=== PATIENT | female | born 1960 | race Caucasian/White ===

== ENCOUNTER 2022-11-21 16:06 | Observation (INO) | payer OTHER ==
[~2022-11-21] VITALS: Ht 170.2 cm; Wt 52.3 kg
[~2022-11-21 16:06] MED LIST: AMOXICILLIN500 MG PO; PREDNISONE20 MG PO; PROVENTIL HFA6.7 GM INH
[2022-11-21] MEDS ORDERED: ALBUTEROL2.5 MG/3 M INH (16:14)
[2022-11-21] MEDS ORDERED: LISINOPRIL5 MG PO (16:14)
[2022-11-21] MEDS ORDERED: FUROSEMIDE20 MG PO (16:14)
[2022-11-21] MEDS ORDERED: SPIRIVA RESPIMAT4 G1 INH (16:14)
[2022-11-21] MEDS ORDERED: FLUTICASONE PRO16 GM NAS (16:14)
[2022-11-21] MEDS ORDERED: CETIRIZINE HCL10 MG PO (16:14)
[2022-11-21] MEDS ORDERED: CARVEDILOL3.125 MG PO (16:14)
[2022-11-21] MEDS ORDERED: VENTOLIN HFA18 GM INH (19:19)
[2022-11-21 20:00] VITALS: BP 110/75
--- NOTE | 2022-11-21 20:33 | NUR ---
USES 4 LPM O2 AT HOME. USES SPIRIVA, ADVAIR AND ALBUTEROL AT HOME. APPROPIATE HOSPITIAL SUBSTITUTIONS ORDERED.
--- NOTE | 2022-11-21 21:31 | NUR ---
PT ASSISTED UP TO BSC, OXYGEN PLACED ON EXTENDED TUBINTG, CONTINUES AT 3L/NC, PT ASSISTED UP TO BSC, VOIDED 100ML MICHEL URINE, GAIT SLOW 1PA STANDBY, PT BACK TO BED. PT TALKING WITH PRIMARY RN.
[2022-11-22 02:01] VITALS: BP 113/64
--- NOTE | 2022-11-22 02:04 | NUR ---
Vitals done. Brought patient a warm blanket. Nothing else needed at this time. Call light is within reach.
[2022-11-22 05:35] VITALS: BP 100/57
--- NOTE | 2022-11-22 06:42 | NUR ---
PT ADMITTED FROM THE ER WITH THE BEGINNING OF THE SHIFT FOR COPD EXACERBATION. PT WEARING O2 AT 4L NC, SATING WELL. DUO NEB TX DONE. VSS. PT SBA TO BSC. SAFETY PRECAUTIONS MAINTAINED. CALL LIGHT WITHIN REACH. WILL CONTINUE TO MONITOR.
--- NOTE | 2022-11-22 07:34 | NUR ---
RECEIVED REPORT FROM [facility] NURSE. PT APPEARS TO BE SLEEPING COMFORTABLY. RESPIRATIONS EVEN AND REGULAR. NC IN PLACE.
--- NOTE | 2022-11-22 08:20 | NUR ---
PT ASSESSMENT AND MEDICATION ADMINISTRATION COMPLETED. PT IS A/O, RESPIRATIONS EVEN AND REGULAR. ASSISSTED PT TO RESTROOM. AMBULATES WELL. IV FLUIDS RUNNING. REMAINS ON NC.
[2022-11-22] MEDS ORDERED: FLUTICASONE-SA1 EAC4 INH (09:29)
[2022-11-22] MEDS ORDERED: HYDROCORTISONE454 GM TOP (09:31)
[2022-11-22 09:49] VITALS: BP 104/51
--- NOTE | 2022-11-22 10:15 | NUR ---
ROUNDED ON PT. PT DENIES NEEDS AT THIS TIME. NO N/V FOR THIS SHIFT. RECEIVED VO FROM TO ADVANCE DIET.
--- NOTE | 2022-11-22 11:04 | NUR ---
assisted pt up to bedside commode. pt is a/o, respirations even and reuglar.
[2022-11-22 11:30] VITALS: BP 101/55
--- NOTE | 2022-11-22 12:09 | NUR ---
ROUNDED ON PT. PT DENIES NEEDS ATT. CALL LIGHT WITHIN REACH.
--- NOTE | 2022-11-26 19:10 | EKG ---
[facility] [address] [place] [address] Signed Sinus rhythm with occasional premature ventricular complexes Right superior axis deviation Anteroseptal infarct (cited on or before 19-MAY-2018) Abnormal ECG When compared with ECG of 21-NOV-2022 16:06, (Unconfirmed) premature ventricular complexes are now present Confirmed by GLORIA HALL MD ([id number]) on 11/26/2022 7:10:11 PM Electronically Signed By: GLORIA HALL 11/26/22 1910 PATIENT NAME: ALEX SEGAL Electrocardiogram DATE OF : 62 PHYSICIAN: GLORIA HALL REPORT #: [id number] REPORT IS CONFIDENTIAL AND NOT TO BE RELEASED WITHOUT AUTHORIZATION
== END 2022-11-22 12:18 | disposition home or self-care (01) ==
LOC: ED 16:06 → MS 16:07
PROVIDERS: ADMIT Internal Medicine; ATTEND Internal Medicine
DX: J44.1 Chronic obstructive pulmonary disease with (acute) exacerbation (principal); K04.7 Periapical abscess without sinus; I50.9 Heart failure, unspecified; I11.0 Hypertensive heart disease with heart failure
CPT/HCPCS: 36415; 71045; 80053; 83735; 83880; 84484; 85025; 93005; 93010; 94640; 94760; 96372; 96374; 96376; 99285 25; 99406; G0378; J1650; J2920; J2930

== ENCOUNTER 2023-08-26 16:46 | Inpatient (IN) | payer OTHER ==
[~2023-08-26] VITALS: Ht 170.2 cm; Wt 49.9 kg
[~2023-08-26 16:46] MED LIST changes: +ALBUTEROL2.5 MG/3 M INH; +CARVEDILOL3.125 MG PO; +CETIRIZINE HCL10 MG PO; +FLUTICASONE PRO16 GM NAS; +FLUTICASONE-SA1 EAC4 INH; +FUROSEMIDE20 MG PO; +HYDROCORTISONE454 GM TOP; +LISINOPRIL5 MG PO; +SPIRIVA RESPIMAT4 G1 INH; +VENTOLIN HFA18 GM INH
[2023-08-26 16:59] LABS: PH, VENOUS 7.301 (7.31-7.41)
[2023-08-26] MEDS ORDERED: ALBUTEROL/IPRATROPIUM 3 ML NEB INH PRN (17:00)
[2023-08-26] MEDS ORDERED: methylPREDNISolone SOD SUCC 125 MG/2 ML VIAL IV ONE (17:00)
[2023-08-26 17:05] LABS: BASOPHILS 0.8 % (0-2); EOSINOPHILS 0.9 % (0-6); HEMATOCRIT 41.5 % (35.0-50.0); HEMOGLOBIN 13.4 g/dL (12.0-18.0); LYMPHOCYTES 13.7 % (24-44); MCH 31.6 (27-36); MCHC 32.3 g/dl (30-36); MCV 97.9 fl (81-99); MONOCYTES 8.6 % (0-12); PLATELET COUNT 203 K/uL (140-440); RBC 4.24 M/ul (4.3-5.7); RDW 13.8 (10.5-15.0)
[2023-08-26 17:24] LABS: ALBUMIN 4.1 g/dL (3.4-5.0); ALBUMIN/GLOBULIN RATIO 1.28 (1.1-2.4); BILIRUBIN, TOTAL 0.6 ng/dL (0.2-1.0); BUN/CREATININE RATIO 26.08 (6.0-28.6); CALCIUM 9.4 mg/dL (8.5-10.1); CREATININE, SERUM 0.46 mg/dL (0.55-1.02); POTASSIUM 4.5 mmol/L (3.5-5.1); PROTEIN, TOTAL 7.3 g/dL (6.4-8.2)
[2023-08-26 17:25] LABS: ANION GAP 2.5 (7-21)
[2023-08-26 18:28] LABS: PH, VENOUS 7.354 (7.31-7.41)
[2023-08-26] MEDS ORDERED: CEFTRIAXONE/SODIUM CHLORIDE 2 GM/100 ML PIGGYBACK IV ONE (19:00)
[2023-08-26] MEDS ORDERED: SODIUM CHLORIDE 0.9% 500 ML IV PRN (19:00)
[2023-08-26] MEDS ORDERED: AZITHROMYCIN/DEXTROSE 500 MG/250 ML BAG IV ONE (19:00)
[2023-08-26] MEDS ORDERED: ALBUTEROL/IPRATROPIUM 3 ML NEB INH SCH ×2 (20:00→21:00)
[2023-08-26 20:02] VITALS: BP 149/79
[2023-08-26] MEDS ORDERED: LORazepam 0.5 MG TAB PO ONE (20:15)
--- NOTE | 2023-08-26 20:50 | NUR ---
ADMISSION AND ASSESSMENT COMPLETED, SEE DOCUMENTATION. ZITHROMAX INFUSION STARTED. FIELD START D/C'D WNL AND NEW IV STARTED IN RIGHT FOREARM. PT WAS ON 4L O2 BUT TITRATED TO 8L AFTER MOVING TO THE BED FOR DESAT TO 86-88%. CALL LIGHT AND BELONGINGS WITHIN REACH. POC DISCUSSED AND QUESTIONS ANSWERED.
--- NOTE | 2023-08-26 21:05 | NUR ---
ATIVAN GIVEN, PT PLACED ON BIPAP PER RT. CALL LIGHT AND BELONGINGS WITHIN REACH.
--- NOTE | 2023-08-26 21:10 | NUR ---
Q4 AROUND THE CLOCK FOR FIRST 24 HOURS.
--- NOTE | 2023-08-26 21:52 | NUR ---
PT SLEEPING WITH BIPAP IN PLACE. RR 26, EVEN AND UNLABORED. HR 73, SPO2 93% PER PULSE OX.
--- NOTE | 2023-08-26 22:42 | NUR ---
PT CONTINUES TO SLEEP WITH BIPAP IN PLACE, VSS.
[2023-08-27] VITALS (9 sets, daily range): BP systolic 114–139; BP diastolic 61–75
--- NOTE | 2023-08-27 00:04 | NUR ---
PT CONTINUES TO SLEEP WITH BIPAP IN PLACE, NO APPARENT DISTRESS. RR:21, HR:73, SPO2: 92%.
--- NOTE | 2023-08-27 00:28 | NUR ---
AVAPS VT GOAL 400, MIN P 8, MAXP P 20, BUR 16
--- NOTE | 2023-08-27 01:54 | NUR ---
PT SLEEPING, WOKE EASILY FOR ASSESSMENT. BIPAP REMAINS IN PLACE, R.T. IN TO ADJUST MASK. VSS. PT DENIES NEED TO USE RESTROOM AT THIS TIME. CALL LIGHT AND BELONGINGS WITHIN REACH.
--- NOTE | 2023-08-27 03:09 | NUR ---
PT RESTING WITH EYES CLOSED, BIPAP IN PLACE. MASK ADJUSTED/SLIGHTLY TIGHTENED. SPO2 95%.
--- NOTE | 2023-08-27 04:28 | NUR ---
PT ASLEEP WITH BIPAP IN PLACE. HR 72, SPO2 90% PER PULSE OX. RESPIRATIONS EVEN AND UNLABORED.
[2023-08-27 05:27] LABS: PH, VENOUS 7.426 (7.31-7.41)
[2023-08-27 05:29] LABS: RDW 13.6 (10.5-15.0)
[2023-08-27 05:32] LABS: BASOPHILS 0.5 % (0-2); HEMATOCRIT 36.5 % (35.0-50.0); LYMPHOCYTES 11.1 % (24-44); MCH 31.5 (27-36); MCHC 32.8 g/dl (30-36); MCV 96.2 fl (81-99); MONOCYTES 7.3 % (0-12); NEUTROPHILS 81.1 % (39-80); PLATELET COUNT 172 K/uL (140-440)
[2023-08-27 05:40] LABS: ANION GAP 4.6 (7-21); BUN/CREATININE RATIO 21.56 (6.0-28.6); CREATININE, SERUM 0.51 mg/dL (0.55-1.02); MAGNESIUM 1.6 mg/dL (1.8-2.4); POTASSIUM 4.6 mmol/L (3.5-5.1)
--- NOTE | 2023-08-27 05:44 | NUR ---
AFTER LABS WERE COLLECTED, BIPAP REMOVED AND PT PLACED ON 4L NC. PT THEN UP TO BSC WITH SBA. PT DYSPNEIC AND DESATS TO MID 80s%, O2 INCREASED TO 8L AND THEN 10L TO MAINTAIN SPO2>90%. R.T. CALLED TO GIVE PRN BREATHING TREATMENT. CALL LIGHT AND BELONGINGS WITHIN REACH.
--- NOTE | 2023-08-27 06:15 | NUR ---
PATIENT REQUESTS COFFEE. REQUEST MET. NO FURTHER NEEDS AT THIS TIME. CALL LIGHT IN REACH.
--- NOTE | 2023-08-27 06:36 | NUR ---
PT NOW ON HIGH FLOW NC PER R.T. @ 40L AND 60%
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
[2023-08-27] MEDS ORDERED: NICOTINE 21 MG/24 HR 1 EA TDSY TD SCH (09:00)
[2023-08-27] MEDS ORDERED: ENOXAPARIN SODIUM 40 MG/0.4 ML SYR SUB-Q SCH (09:00)
[2023-08-27] MEDS ORDERED: predniSONE 20 MG TAB PO SCH (09:00)
[2023-08-27] MEDS ORDERED: AZITHROMYCIN 250 MG TAB PO SCH (09:00)
[2023-08-27] MEDS ORDERED: MAGNESIUM SULFATE 4 GM/100 ML BAG IV ONE (09:15)
[2023-08-27] MEDS ORDERED: CARVEDILOL6.25 MG PO (09:48)
[2023-08-27] MEDS ORDERED: SPIRIVA RESPIMAT4 GM INH (09:49)
[2023-08-27] MEDS ORDERED: LISINOPRIL20 MG PO (09:49)
[2023-08-27] MEDS ORDERED: IPRAT-ALBUT 0.5-3 ML INH (09:50)
--- NOTE | 2023-08-27 10:15 | NUR ---
PATIENT IN BED AT THIS TIME. VITALS AND I&O'S CHARTED, WARM BLANKET WAS ALSO GIVEN. CALL LIGHT WITHIN REACH, NO FURTHER NEEDS AT THIS TIME.
--- NOTE | 2023-08-27 10:54 | NUR ---
ATTEMPTED VISIT DURING SPIRITUAL CARE ROUNDS. PT RECEIVING NURSING CARE. DID NOT INTERRUPT. PROVIDED PRAYER.
--- NOTE | 2023-08-27 10:56 | NUR ---
MED REC COMPLETE
--- NOTE | 2023-08-27 11:09 | NUR ---
VISITED DURING SPIRITUAL CARE ROUNDS. PT AND CRANIOLOGIST EXPRESSED SITUATIONALLY APPROPRIATE EMOTIONS; CONFIDENCE IN CARE. PT REQUESTED PRAYER WHICH I PROVIDED. PROVIDED SUPPORTIVE PRESENCE; HOSPITALITY. PT EXPRESSED GRATITUDE.
--- NOTE | 2023-08-27 11:51 | NUR ---
PATIENT UP TO THE BEDSIDE COMODE TO URINATE. NO COMPLICATIONS, SBA. PATIENT BED CLEANED UP AND PATIENT SITTING IN BED WITH LUNCH. CALL LIGHT WITHIN REACH. PATIENT HAS TV ON. CASE MANAGEMENT WAS JUST IN TALKING TO PATIENT. PATIENT DENIES ANY OTHER CARES AT THIS TIME.
[2023-08-27] MEDS ORDERED: PHARMACY RENAL DOSE ADJUSTMENT 1 DOSE MISC PO SCH (12:00)
--- NOTE | 2023-08-27 12:33 | NUR ---
UR NOTE 08/27/23 INPATIENT ORDER 08/26/23 1854 [facility] CHRONIC OBSTRUCTIVE PULMONARY DISEASE PRIMARY INSURANCE: [facility]
--- NOTE | 2023-08-27 12:43 | EKG ---
[facility] [address] [place] [address] Signed Normal sinus rhythm Indeterminate axis Nonspecific intraventricular block Minimal voltage criteria for LVH, may be normal variant ( Ruth product ) Abnormal ECG When compared with ECG of 21-NOV-2022 16:06, premature ventricular complexes are no longer present Questionable change in QRS duration Criteria for Anteroseptal infarct are no longer present Confirmed by Guerrero Scott MD ([id number]) on 08/27/2023 12:43:12 PM Electronically Signed By: GUERRERO SCOTT 08/27/23 1243 PATIENT NAME: ALEX SEGAL Electrocardiogram DATE OF : 62 PHYSICIAN: GUERRERO SCOTT REPORT #: [id number] REPORT IS CONFIDENTIAL AND NOT TO BE RELEASED WITHOUT AUTHORIZATION
--- NOTE | 2023-08-27 14:00 | NUR ---
Spoke with pt. She states she lives in an apartment with an elevator. She has been having increased decline and sob. Pt has history of COPD and uses 4L of 02 through [employer]. She does not use other DME other than oxygen. Referral stated pt could not get food and had lost weight. Pt denies this. She states her friend shops for her. She has access to the internet and will online grocery shop. She also has a son, he does not have a phone at this time. She will contact his friends to let him know she is hospitalized. Pt states she wants to stop smoking. She will not complete a class out of the home. I printed the [employer] smoking cessation info with a number for her. Pt uses [employer] [facility] for all medical. She denies other needs. She plans on dc tomorrow.
--- NOTE | 2023-08-27 15:24 | NUR ---
GREEN PIPEFITTER CHANGED PT BED LINENS AND PLACED WAFFEL MATTRESS. GREEN PIPEFITTER ASSISTED PT TO BEDSIDE COMMODE. PT VOIDED AND GREEN PIPEFITTER RECORDED OUTPUT. PT GOT BACK INTO HER CHAIR AND GREEN PIPEFITTER REQUESTED PT STAYS IN HER CHAIR UNTIL AFTER DINNER. PT SAID SHE WOULD TRY HER BEST. GREEN PIPEFITTER REFILLED PT ICEWATER. PT STATES NO FUTHER COMPLAINTS AND CALL LIGHT IS WIHTIN REACH
--- NOTE | 2023-08-27 16:16 | NUR ---
Patient up in the chair talking to RT.
--- NOTE | 2023-08-27 18:07 | NUR ---
PATIENT MOVED FROM THE CHAIR TO THE BED AFTER DINNER. PATIENT OXYGEN DID DROP TO 83 PERCENT WHEN MOVING TO THE BED. PATIENT ON 6L CURRENTLY. DEEP BREATHING AND PATIENT IS ABLE TO GET IT BACK UP. PATIENT GIVEN WARM BLANKET AND FRESH COFFEE. CALL LIGHT WITHIN REACH, BED IN LOW POSTION. TV ON FOR PATIENT.
--- NOTE | 2023-08-27 18:23 | NUR ---
PT EDUCATED ON COPD SYMPTOMS, STOP LIGHT ACTION PLAN AND TREATMENT OPTIONS. PT ADVISED TO STOP SMOKING AND PROVIDED WITH SMOKING CESSATION RESOURCES. PT EDUCATED ON COPD EXACERATIONS, WHEN THEY OCCUR AND WAYS TO ASSIST WITH THE DYSPNEA CYCLE AND WHEN TO SPEAK WITH PROVIDER OR COME TO THE ED. PT VERBALIZED UNDERSTANDING.
--- NOTE | 2023-08-27 19:27 | NUR ---
REPORT RECEIVED FROM DAY SHIFT RN. PT LYING IN BED ALERT AND ORIENTED. DENIES NEEDS. WHITE BOARD UPDATED. CALL LIGHT IN REACH.
--- NOTE | 2023-08-27 21:34 | NUR ---
PT RESTING IN BED WITH EYES CLOSED. AWAKENS EASILY. VS AND I&O OBTAINED. EVENING ASSESSMENT COMPLETE. PT DENIES PAIN OR NAUSEA. DENIES SOB AT THIS TIME. 6L/NC IN PLACE. SpO2 LOW 90'S. HR 80'S. RESPIRATIONS EVEN. LUNGS CLEAR/DIM THROUGHOUT AT THIS TIME. PT DENIES QUESTIONS OR CONCERNS. CALL LIGHT IN REACH.
--- NOTE | 2023-08-27 22:15 | NUR ---
CALL LIGHT ANSWERED. PT NEEDED TO USE BEDSIDE COMMODE. GAMEMASTER ASSISTED PT TO BED SIDE COMMODE AND STRAIGHTENED BED LINENS. GAMEMASTER ASSISTED PT BACK TO BED AND MEASURED OUTPUT. CALL LIGHT PLACED WITHIN REACH.
--- NOTE | 2023-08-27 23:46 | NUR ---
CPOX ALARMING. SpO2 86% ON 6L/NC. PT CURLED UP LYING ON LEFT SIDE. PT REPOSITIONED TO BACK. SpO2 90%.
--- NOTE | 2023-08-28 01:01 | NUR ---
PATIENT RESTING IN BED ON BACK WITH EYES CLOSED. REPIRATIONS EVEN AND UNLABORED. O2 93%. CALL LIGHT IN REACH.
--- NOTE | 2023-08-28 02:21 | NUR ---
CALL LIGHT ANSWERED. PATIENT UP TO BSC WITH MINIMAL SBA TO VOID YELLOW URINE. PATIENT BACK TO BED. ASSESSMENT COMPLETE. PATIENT DENIES SOB. LUNG SOUNDS CLEAR BILAT. PATIENT HAS NO FURTHER NEEDS. CALL LIGHT IN REACH.
--- NOTE | 2023-08-28 02:43 | NUR ---
CALL LIGHT ANSWERED. PATIENT REPORTS 5/10 HEADACHE PAIN. NIO FOR TYLENOL PLACED BY THIS RN. PRN MEDICATION ADMINISTERED. NO FURTHER NEEDS. CALL LIGHT IN REACH.
[2023-08-28] MEDS ORDERED: ACETAMINOPHEN 500 MG TAB PO PRN (02:45)
--- NOTE | 2023-08-28 04:00 | NUR ---
PATIENT RESTING IN BED WITH EYES CLOSED. RESPIRATIONS EVEN AND UNLABORED. CALL LIGHT IN REACH.
[2023-08-28 05:44] LABS: BASOPHILS 0.3 % (0-2); EOSINOPHILS 0.2 % (0-6); HEMATOCRIT 35.9 % (35.0-50.0); LYMPHOCYTES 15.6 % (24-44); MCH 31.7 (27-36); MCHC 33.3 g/dl (30-36); MCV 95.3 fl (81-99); MONOCYTES 8.4 % (0-12); NEUTROPHILS 75.5 % (39-80); PLATELET COUNT 161 K/uL (140-440); RBC 3.77 M/ul (4.3-5.7); RDW 13.5 (10.5-15.0)
[2023-08-28 05:55] LABS: ANION GAP 4.9 (7-21); CALCIUM 8.7 mg/dL (8.5-10.1); CREATININE, SERUM 0.45 mg/dL (0.55-1.02); POTASSIUM 3.9 mmol/L (3.5-5.1)
--- NOTE | 2023-08-28 05:56 | NUR ---
PATIENT RESTING IN BED WITH EYES CLOSED. RESPIRATIONS EVEN AND UNLABORED. O2 SAT 93%. CALL LIGHT IN REACH.
--- NOTE | 2023-08-28 07:58 | NUR ---
BRIDGE/STRUCTURE INSPECTION TEAM LEADER UPDATED PT BOARD WITH TODAY'S INFORMATION
--- NOTE | 2023-08-28 08:05 | NUR ---
GOT REPORT FROM FIRST GRADE TEACHER NURSE. PATIENT CURRENLTY SLEEPING, OXYGEN AT 94% WITH NC ON. PATIENT ON RIGHT SIDE.
[2023-08-28 08:57] LABS: PH, VENOUS 7.419 (7.31-7.41)
--- NOTE | 2023-08-28 09:17 | NUR ---
PATIENT GIVEN MORNING MEDICATIONS. PATIENT GIVEN TYLENOL. DOCTOR IS AWARE OF THE LEFT SIDED CHEST PAIN. PATIENT LAYING IN BED WITH HOB ELEVATED. PATIENT ON 6% NC WITH A STAT OF 89. REMOVED OLD NICOTINE PATCH. NEW ONE PLACED ON THE LEFT SHOUDLER. PATIENT GIVEN WARM BLANKET AND FRESH COFFEE.
[2023-08-28] MEDS ORDERED: carvediloL 6.25 MG TAB PO SCH (09:19)
[2023-08-28] MEDS ORDERED: FUROSEMIDE 20 MG TAB PO SCH (09:20)
[2023-08-28 09:37] VITALS: BP 118/61
[2023-08-28 10:00] VITALS: BP 118/61
[2023-08-28] MEDS ORDERED: POLYETHYLENE GLYCOL 3350 1 PACKET PO SCH (10:03)
--- NOTE | 2023-08-28 10:53 | NUR ---
ATTEMPTED TO VISIT DURING SPIRITUAL CARE ROUNDS. PT WORKING WITH PHYSICAL THERAPY. DID NOT INTTERUPT. PROVIDED PRAYER.
--- NOTE | 2023-08-28 11:17 | NUR ---
PATIENT UP IN CHAIR EATING A BANANA.
--- NOTE | 2023-08-28 11:52 | NUR ---
PATIENT MOVED FROM CHAIR TO BED. PATIENT HAD A BM ALSO AFTER MIRLAX. PATIENT IS SET UP IN BED AND READY FOR LUNCH. CORDS WERE CLEANED UP AND ROOM CLEANED UP. PATIENT VERY THANKFUL FOR THE HELP.
--- NOTE | 2023-08-28 12:06 | NUR ---
PATIENT GOT 5L OF FLUID LAST NIGHT AND LASIX WAS GIVEN THIS MORNING. PATIENT HAS HAD TO GET UP TO THE BATHROOM MULTIPLE TIMES AND IS BECOMING TIRED. WE WILL PLACE A PUREWICK AT THIS TIME.
--- NOTE | 2023-08-28 13:30 | NUR ---
PATIENT RESTING IN BED. HOB ELEVATED. PATIENT ON 6L WITH AN OXYGEN STAT OF 98%. MOVED DOWN TO 4L AND PATIENT IS HOLDING AT 94% WILL CONTINUE TO MONITOR AND WATCH.
[2023-08-28 13:55] VITALS: BP 113/71
--- NOTE | 2023-08-28 14:00 | NUR ---
Spoke withpt and she cont. to deny needs. Will most like dc over the weekend. She has friends who will assist her. She states she grocery shopped prior to arrival to the hospital so is ok for now. She was not able to contact her son, but states a friend will drive out and tell him she is hospitalized.
--- NOTE | 2023-08-28 15:30 | NUR ---
Updated by PT and they are recommending HH PT on dc and a cane. Spoke with pt and she declines both.
--- NOTE | 2023-08-28 16:04 | NUR ---
PATIENT WATCHING TV IN BED. PATIENT JUST GOT HER HAIR COMBED. PATIENT CURRENTLY ON 4L OXYGEN. PATIENT STATS AT 90%. PATIENT DENIES ANY OTHER CARES AT THIS TIME.
[2023-08-28 17:25] VITALS: BP 126/68
--- NOTE | 2023-08-28 18:15 | NUR ---
PATIENT UP TO THE BEDSIDE COMMODE. [facility] STATS HELD ON 4L. PATIENT BACK IN BED WATCHING TV.
--- NOTE | 2023-08-28 19:17 | NUR ---
SHIFT REPORT RECEIVED FROM EAMON YOON, PT RESTING WITH EYES CLOSED.
[2023-08-28 19:53] VITALS: BP 117/81
--- NOTE | 2023-08-28 20:10 | NUR ---
CALL LIGHT ANSWERED. PT NEEDED TO USE BED SIDE COMMODE. HIDE DROPPER ASSISTED PT TO BEDSIDE COMMODE. BED LINENS STRAIGHTENED AND PT BOARD UPDATED. PT ASSISTED BACK TO BED. VITALS AND I AND O DOCUMENTED. PT REQUESTED A FRESH ICE WATER AND A CUP OF COFFEE. HIDE DROPPER REFILLED DRINKS AND CALL LIGHT PLACED WITHIN REACH.
--- NOTE | 2023-08-28 20:42 | NUR ---
CALL LIGHT ANSWERED, pt PROVIDED WITH ICECREAM PER pt REQUEST. NO ADDITIONAL NEEDS PROVIDED, CALL LIGHT AND PERSONAL BELONGINS IN REACH. PRIMARY RN UPDATED.
--- NOTE | 2023-08-28 22:03 | NUR ---
CALL LIGHT ANSWERED. PT NEEDED TO USE BEDSIDE COMMODE. SIGN ARTIST ASSISTED PT TO BED SIDE COMMODE. SIGN ARTIST STRAIGHTEND BED LINENS. PT ASSISTED BACK TO BED AND OUTPUT RECORDED. PT REQUESTED SOME SNACKS AND A FRESH COFFEE. SIGN ARTIST BROUGHT PT JELLO AND CRACKERS AND REFILLED COFFEE. CALL LIGHT PLACED WITHIN REACH.
[2023-08-28 22:04] VITALS: BP 132/73
--- NOTE | 2023-08-28 22:10 | NUR ---
RN TO ROOM, PT ALERT AND ORIENTENED, TALKATIVE, ASSESSMENT COMPLETED, RIGHT FA SL FLUSHES WELL, SITE INTACT, BP RECHECKED AND IS NOW 132/73, RT COREG GIVEN PER ORDER, PT DECLINES MIRALAX, STATES SHE WILL "HAVE A BM AT HOME WHERE SHE IS MORE COMFORTABLE DOING SO", PT MEDICATED FOR LEFT CHEST PAIN 5/10 WITH TYLENOL PER REQUESTS, PT STATES MD SAID THIS IS DUE TO SECRETIONS BUILD UP IN THIS AREA OF HER LUNG, PT REPORTS THE NEBULIZERS ARE WORKING WELL TO BREAK UP SECRETIONS, PT WITHOUT REQUESTS AT THIS TIME, RESTING.
--- NOTE | 2023-08-29 00:15 | NUR ---
PT APPEARS TO SLEEP, RESP EVEN AND REGULAR.
--- NOTE | 2023-08-29 00:25 | NUR ---
RT IN FOR SCHEDULED NEBULIZER TREATMENT.
--- NOTE | 2023-08-29 00:37 | NUR ---
SCHEDULED BREATHING TX COMPLETED, pt REPORTS NEED TO GO TO THE BATHROOM. LABOR CONCILIATOR IN ROOM TO ASSIST. NO ADDITIONAL NEEDS OR CONCERNS, WILL MONITOR FOR CHANGES.
--- NOTE | 2023-08-29 00:38 | NUR ---
PT REQUESTED TO USE BED SIDE COMMODE. SALES RECRUITMENT SPECIALIST ASSISTED PT TO BEDISDE COMMODE AND STARIGHTEND BED LINENS. PT ASSISTED BACK TO BED AND OUTPUT DOCUMENTED. CALL LIGHT PLACED WITHIN REACH.
--- NOTE | 2023-08-29 02:30 | NUR ---
PT APPEARS TO SLEEP, RESP EVEN AND REG.
[2023-08-29 02:40] VITALS: BP 132/73
--- NOTE | 2023-08-29 04:15 | NUR ---
PT APPEARS TO SLEEP, RESP EVEN AND REG, OXYGEN REMAINS IN PLACE CP0X 90%.
[2023-08-29 06:12] VITALS: BP 146/80
--- NOTE | 2023-08-29 06:31 | NUR ---
CUSTOMER EQUIPMENT ENGINEER ENTERED ROOM TO TAKE VITALS. PT REQUESTED TO USE BEDSIDE COMMODE. VNA ASSISTE PT TO BEDSIDE COMMODE. BE LINENS STRAIGHTEND. PT ASSISTED BACK TO BED AND I AND O RECORDED. VITALS OBTAINED. PT ASKED FOR A COFFEE AND COFFEE WAS REFILLED BT CUSTOMER EQUIPMENT ENGINEER. NO FURHTER NEEDS AT THIS TIME. CALL LIGHT PLACED WITHIN REACH.
--- NOTE | 2023-08-29 06:45 | NUR ---
PT RESTING QUIETLY, BREATH SOUNDS CLEAR RUL AND RLL, CLEAR RIRI AND DIM LLL, PT STATES SHE HASN'T COUGHED UP ANY MUCOUS TONIGHT, PT DENIES NEED FOR PAIN MED AT THIS TIME, PT HOPEFUL TO GO HOME TODAY, PT REQUESTING A CUP OF COFFEE, GIVEN.
--- NOTE | 2023-08-29 07:32 | NUR ---
REPORT RECEIVED FROM DORETHA Gr RN. PT RESTING IN BED WITH EYES CLOSED. RESPIRTATIONS EVEN AND UNLABORED, SPO2 94, PULSE 62. CALL LIGHT WITHIN REACH.
[2023-08-29 11:19] VITALS: BP 124/67
--- NOTE | 2023-08-29 12:25 | NUR ---
PT. SITTING UP IN BED EATING LUNCH. NO NEEDS AT THIS TIME. CALL LIGHT WITHIN REACH.
[2023-08-29] MEDS ORDERED: AZITHROMYCIN250 MG PO (12:34)
[2023-08-29] MEDS ORDERED: PREDNISONE20 MG PO (12:35)
[2023-08-29 12:37] VITALS: BP 128/74
--- NOTE | 2023-08-29 13:07 | NUR ---
REVIEWED DISCHARGE PACKET AND INSTRUCTIONS WITH PT. PT VERBALIZED UNDERSTANDING. PT ASSISTED TO COMMODE AND BACK TO BED. NO FURTHER NEEDS AT THIS TIME. CALL LIGHT WITHIN REACH.
== END 2023-08-29 13:40 | disposition home or self-care (01) | DRG 189 ==
LOC: ED 16:46 → MS 19:33
PROVIDERS: Emergency Medicine; ADMIT Internal Medicine; ATTEND Internal Medicine
DX: J96.21 Acute and chronic respiratory failure with hypoxia (principal); J44.1 Chronic obstructive pulmonary disease with (acute) exacerbation; J96.22 Acute and chronic respiratory failure with hypercapnia; F17.210 Nicotine dependence, cigarettes, uncomplicated; Z71.6 Tobacco abuse counseling; Z99.81 Dependence on supplemental oxygen; F12.90 Cannabis use, unspecified, uncomplicated; Z79.899 Other long term (current) drug therapy; Z79.811 Long term (current) use of aromatase inhibitors; Z79.51 Long term (current) use of inhaled steroids; Z79.52 Long term (current) use of systemic steroids
CPT/HCPCS: 36415; 71045; 80048; 80053; 82803; 83735; 83880; 84484; 85025; 93005; 93010; 94640; 94660; 94667; 94668; 94762; 94799; 99406; A9270; J0456; J0696; J1650; J2930; J3475; J7040; J7512

== ENCOUNTER 2023-10-14 13:09 | Emergency (ER) | payer OTHER ==
[~2023-10-14] VITALS: Ht 170.2 cm; Wt 53.6 kg
[~2023-10-14 13:09] MED LIST changes: +AZITHROMYCIN250 MG PO; +CARVEDILOL6.25 MG PO; +DEXTROSE 5% IV SCH; +EPINEPHRINE HCL IV SCH; +IPRAT-ALBUT 0.5-3 ML INH; +LISINOPRIL20 MG PO; +METHYLPREDNISOLO4 M1 PO; +SPIRIVA RESPIMAT4 GM INH
[2023-10-14 13:28] LABS: HEMATOCRIT 41.3 % (35.0-50.0); HEMOGLOBIN 12.8 g/dL (12.0-18.0); MCH 32.5 (27-36); MCHC 30.9 g/dl (30-36); MCV 105.2 fl (81-99); PLATELET COUNT 136 K/uL (140-440); RBC 3.93 M/ul (4.3-5.7); RDW 14.6 (10.5-15.0)
[2023-10-14 13:43] LABS: INR 1.36 (0.80-1.30); PROTIME 16.3 Sec (11.2-14.2)
[2023-10-14 13:50] LABS: BANDS, MANUAL DIFF 2; BASOPHILS, MANUAL DIFF 2; LYMPHOCYTES, MANUAL DIFF 19; MONOCYTES, MANUAL DIFF 3; NEUTROPHILS, MANUAL DIFF 74
[2023-10-14 13:52] LABS: BASE EXCESS, BLOOD GAS -3.1 mmol/L (-2-2); HCO3, BLOOD GAS 30.6 mmol/L (22-26); O2 SATURATION, BLOOD GAS > 100.0 % (95.0-100.0); PH, BLOOD GAS 7.01 (7.35-7.45); PO2, BLOOD GAS 275 mmHg (80-100); TOTAL CO2, BLOOD GAS 34.5
[2023-10-14 13:53] LABS: OXYGEN RECEIVED, BLOOD GAS 15L
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
[2023-10-14] MEDS ORDERED: ALBUTEROL/IPRATROPIUM 3 ML NEB INH ONE (14:00)
[2023-10-14] MEDS ORDERED: NOREPINEPHRINE BITARTRATE 250 ML IV SCH (14:00)
[2023-10-14] MEDS ORDERED: ALBUTEROL/IPRATROPIUM 3 ML NEB ONE (14:17)
[2023-10-14 14:23] LABS: BILIRUBIN, URINE NEGATIVE (negative); BLOOD/HGB, URINE NEGATIVE (Negative); KETONE, URINE NEGATIVE (Negative); LEUK ESTERASE, URINE NEGATIVE (negative); NITRITE, URINE NEGATIVE (negative); PH, URINE 5.5 (5-7)
[2023-10-14 14:29] LABS: RED BLOOD CELLS, URINE 0-1 /hpf (0-5)
[2023-10-14 14:30] LABS: ALBUMIN 2.5 g/dL (3.4-5.0); ALBUMIN/GLOBULIN RATIO 0.93 (1.1-2.4); ANION GAP 5.5 (7-21); BILIRUBIN, TOTAL 0.3 ng/dL (0.2-1.0); BUN/CREATININE RATIO 27.69 (6.0-28.6); CALCIUM 8.4 mg/dL (8.5-10.1); CREATININE, SERUM 0.65 mg/dL (0.55-1.02); MAGNESIUM 2.2 mg/dL (1.8-2.4); POTASSIUM 5.5 mmol/L (3.5-5.1); PROTEIN, TOTAL 5.2 g/dL (6.4-8.2)
[2023-10-14 14:30] LABS: BACTERIA, URINE NONE SEEN /hpf (negative); CASTS, URINE HYALINE 3+ \\lpf; COLLECTION TYPE, URINE CATH; CRYSTALS, URINE NONE SEEN (0-1+); EPITHELIAL CELLS, URINE SQUAMOUS 1+ /lpf (0-1+); REFLEX CULTURE, URINE No (No)
[2023-10-14 14:46] LABS: AMPHETAMINES, URINE NEGATIVE (NEGATIVE); BARBITURATES, URINE NEGATIVE (NEGATIVE); BENZODIAZEPINE, URINE NEGATIVE (NEGATIVE); BUPRENORPHINE, URINE NEGATIVE (NEGATIVE); CANNABINOID, URINE NEGATIVE (NEGATIVE); COCAINE, URINE NEGATIVE (NEGATIVE); ECSTASY, URINE NEGATIVE (NEGATIVE); FENTANYL, URINE NEGATIVE (NEGATIVE); METHADONE, URINE NEGATIVE (NEGATIVE); OPIATES, URINE NEGATIVE (NEGATIVE); OXYCODONE, URINE NEGATIVE (NEGATIVE); PHENCYCLIDINE, URINE NEGATIVE (NEGATIVE)
[2023-10-14] MEDS ORDERED: AMIODARONE/DEXTROSE 100 ML IV ONE (15:30)
[2023-10-14] MEDS ORDERED: ALBUTEROL/IPRATROPIUM 3 ML NEB INH PRN (15:30)
[2023-10-14] MEDS ORDERED: fentaNYL citrate 100 MCG/2 ML VIAL IV ONE ×2 (16:00→17:30)
[2023-10-14 16:04] LABS: BASE EXCESS, BLOOD GAS -3.7 mmol/L (-2-2); HCO3, BLOOD GAS 31.4 mmol/L (22-26); O2 SATURATION, BLOOD GAS 94.1 % (95.0-100.0); OXYGEN RECEIVED, BLOOD GAS 60%; PH, BLOOD GAS 7.01 (7.35-7.45); PO2, BLOOD GAS 62 mmHg (80-100); TOTAL CO2, BLOOD GAS 35.6
[2023-10-14] MEDS ORDERED: EPINEPHRINE HCL IV SCH (17:15)
[2023-10-14] MEDS ORDERED: DEXTROSE 5% IV SCH (17:15)
[2023-10-14 18:38] VITALS: BP 120/66
--- NOTE | 2023-10-15 23:55 | EKG ---
[facility] [address] [place] [address] Signed Poor data quality, interpretation may be adversely affected Normal sinus rhythm Left axis deviation Right bundle branch block Possible Inferior infarct , age undetermined Abnormal ECG When compared with ECG of 27-SEP-2023 05:12, Right bundle branch block is now present Borderline criteria for Inferior infarct are now present Confirmed by Ivone Reyna MD () on 10/15/2023 11:55:08 PM Electronically Signed By: IVONE REYNA MD 10/15/23 2355 PATIENT NAME: ALEX SEGAL Electrocardiogram DATE OF : 62 PHYSICIAN: IVONE REYNA MD REPORT #: [id number] REPORT IS CONFIDENTIAL AND NOT TO BE RELEASED WITHOUT AUTHORIZATION
== END 2023-10-14 19:14 | disposition short-term general hospital (02) ==
LOC: ED 13:09
PROVIDERS: Emergency Medicine
DX: R09.2 Respiratory arrest (principal); I95.9 Hypotension, unspecified; T68.XXXA Hypothermia, initial encounter; J44.9 Chronic obstructive pulmonary disease, unspecified; F17.200 Nicotine dependence, unspecified, uncomplicated; Z79.899 Other long term (current) drug therapy
CPT/HCPCS: 31500; 36415; 36600; 70450; 71045; 80053; 80307; 81001; 82803; 83735; 84484; 85025; 85610; 92950; 93005; 93010; 94640; 99291; J0171; J0282; J3010